=== PATIENT | female | born 1955 | race Caucasian/White ===

== ENCOUNTER 2019-05-04 20:25 | Emergency (ER) | payer OTHER ==
[~2019-05-04] VITALS: Ht 170.2 cm; Wt 49.9 kg
[~2019-05-04 20:25] MED LIST: AMLO5; ASPI81EC; HYDACE5 PO; IBUP200; INSULANPEN SC; LEVSOD50 PO; LISI20 PO; MAGNESIUM250 MG PO; METF500; OXYACE5T PO; VENL25 PO
[2019-05-04 20:47] LABS: Source, Urine Clean Catch
[2019-05-04 20:53] LABS: Bilirubin, Urine Neg (Neg); Blood, Urine 1+ (Neg); Glucose Qualitative, Urine 4+ (Neg); Ketones, Urine Neg (Neg); Leukocyte Esterase, Urine 1+ (Neg); Nitrite, Urine Neg (Neg); Protein, Urine 2+ (Neg); Urobilinogen, Urine NORM (Normal); pH, Urine 6.5 (5.0-8.0)
[2019-05-04 20:56] LABS: Appearance, Urine Clear (Clear); Color, Urine Yellow (P-Yellow)
[2019-05-04 20:57] LABS: Bacteria Mod /hpf; Red Blood Cells, Urine 0-2 /hpf (0-2); Squamous Epithelial Cells Rare /hpf (Few)
[2019-05-04 21:22] LABS: BASOPHILS ABSOLUTE AUTO 0.03 K/mm3 (0.00-0.23); BASOPHILS PERCENT AUTO 0 % (0-2); EOSINOPHILS ABSOLUTE AUTO 0.04 K/mm3 (0.00-0.68); EOSINOPHILS PERCENT AUTO 1 % (0-6); Hematocrit 38.4 % (33.0-51.0); Hemoglobin 12.5 g/dL (11.5-16.0); IMMATURE GRAN ABSOLUTE AUTO 0.03 K/mm3 (0.00-0.10); IMMATURE GRAN PERCENT AUTO 0 % (0-1); LYMPHOCYTES ABSOLUTE AUTO 2.09 K/mm3 (0.84-5.20); LYMPHOCYTES PERCENT AUTO 26 % (21-46); MONOCYTES ABSOLUTE AUTO 0.92 K/mm3 (0.16-1.47); MONOCYTES PERCENT AUTO 12 % (4-13); Mean Corpuscular HGB 29.5 pg (26.0-34.0); Mean Corpuscular HGB Conc 32.6 g/dL (31.5-36.5); Mean Corpuscular Volume 91 fL (80-100); Mean Platelet Volume 11.3 fL (9.1-12.4); NEUTROPHILS ABSOLUTE AUTO 4.89 K/mm3 (1.96-9.15); NEUTROPHILS PERCENT AUTO 61 % (41-73); Platelet Count 202 K/mm3 (150-400); RDW Coefficient Variation 15.3 % (11.7-14.2); RDW Standard Deviation 50.5 fL (35.1-46.3); Red Blood Cell Count 4.24 M/mm3 (3.80-5.20)
[2019-05-04 21:54] LABS: Alanine Aminotransfer (ALT/SGP 48 U/L (12-78); Albumin, Blood 2.2 g/dL (3.4-5.0); Albumin/Globulin Ratio 0.3 (0.8-1.8); Alk Phos 221 U/L (50-136); Anion Gap 8 mmol/L (6-16); Aspartate Aminotrans (AST/SGOT 88 U/L (12-37); Bilirubin, Total 0.3 mg/dL (0.1-1.0); Blood Urea Nitrogen 29 mg/dL (8-24); Bun/Creatinine Ratio 55.7 (12.0-20.0); CO2, Blood 22 mmol/L (21-32); Calcium, Blood 8.1 mg/dL (8.5-10.1); Chloride, Blood 97 mmol/L (98-108); Creatinine, Blood 0.52 mg/dL (0.40-1.00); Globulin, Blood 6.3 g/dL (2.2-4.0); Glomerular Filtration Rate >60 (60-); Glucose, Blood 636 mg/dL (70-99); Potassium, Blood 4.7 mmol/L (3.5-5.5); Sodium, Blood 127 mmol/L (136-145); Total Protein, Blood 8.5 g/dL (6.4-8.2)
[2019-05-04 22:13] LABS: Influenza A Negative (NEGATIVE); Influenza B Negative (NEGATIVE)
[2019-05-04] MEDS ORDERED: METF500 PO (23:59)
[2019-05-04] MEDS ORDERED: GLIP5 PO (23:59)
[2019-05-04] MEDS ORDERED: METO50ER PO (23:59)
[2019-05-05] MEDS ORDERED: CEPH500 PO (00:11)
[2019-05-05] MEDS ORDERED: Percocet 5-3251 EACH PO (09:28)
== END 2019-05-05 00:40 | disposition home or self-care (01) ==
LOC: ER 20:25
PROVIDERS: Emergency Medicine
DX: E11.65 Type 2 diabetes mellitus with hyperglycemia (principal); N39.0 Urinary tract infection, site not specified; I25.2 Old myocardial infarction; I10 Essential (primary) hypertension; Z86.19 Personal history of other infectious and parasitic diseases; F17.200 Nicotine dependence, unspecified, uncomplicated; Z79.899 Other long term (current) drug therapy
CPT/HCPCS: 36415; 71046; 80053; 81001; 82947; 85025; 87077; 87086; 87186; 87804; 93005; 93010; 96361; 96365; 99284-25; J0696; J1815; J7030

== ENCOUNTER 2019-05-05 07:20 | Emergency (ER) | payer OTHER ==
[~2019-05-05] VITALS: Ht 154.9 cm; Wt 45.4 kg
[~2019-05-05 07:20] MED LIST changes: +CEPH500 PO; +GLIP5 PO; +METF500 PO; +METO50ER PO
[2019-05-05] MEDS ORDERED: Percocet 5-3251 EACH PO (09:28)
== END 2019-05-05 09:45 | disposition home or self-care (01) ==
LOC: ER 07:20
DX: S42.251A Displaced fracture of greater tuberosity of right humerus, initial encounter for closed fracture (principal); S42.211A Unspecified displaced fracture of surgical neck of right humerus, initial encounter for closed fracture; I10 Essential (primary) hypertension; E11.9 Type 2 diabetes mellitus without complications; I25.2 Old myocardial infarction; F17.200 Nicotine dependence, unspecified, uncomplicated; Z79.899 Other long term (current) drug therapy; Z79.4 Long term (current) use of insulin; W01.0XXA Fall on same level from slipping, tripping and stumbling without subsequent striking against object, initial encounter
CPT/HCPCS: 29125; 73030; 99283-25

== ENCOUNTER 2019-05-09 19:24 | Emergency (ER) | payer OTHER ==
[~2019-05-09] VITALS: Ht 170.2 cm; Wt 49.9 kg
[~2019-05-09 19:24] MED LIST changes: +Percocet 5-3251 EACH PO
[2019-05-09] MEDS ORDERED: Voltaren100 GM TOP (21:37)
== END 2019-05-09 22:18 | disposition home or self-care (01) ==
LOC: ER 19:24
DX: S70.01XA Contusion of right hip, initial encounter (principal); S20.211A Contusion of right front wall of thorax, initial encounter; S42.201D Unspecified fracture of upper end of right humerus, subsequent encounter for fracture with routine healing; I10 Essential (primary) hypertension; E11.9 Type 2 diabetes mellitus without complications; I25.2 Old myocardial infarction; F17.200 Nicotine dependence, unspecified, uncomplicated; Z79.899 Other long term (current) drug therapy; Z79.4 Long term (current) use of insulin; W19.XXXA Unspecified fall, initial encounter
CPT/HCPCS: 73502; 99283-25

== ENCOUNTER 2019-05-13 23:19 | Inpatient (IN) | payer OTHER ==
[~2019-05-13] VITALS: Ht 170.2 cm; Wt 62.1 kg
[~2019-05-13 23:19] MED LIST changes: +Voltaren100 GM TOP
[2019-05-14 00:30] LABS: BASOPHILS ABSOLUTE AUTO 0.04 K/mm3 (0.00-0.23); BASOPHILS PERCENT AUTO 1 % (0-2); EOSINOPHILS ABSOLUTE AUTO 0.07 K/mm3 (0.00-0.68); EOSINOPHILS PERCENT AUTO 1 % (0-6); Hematocrit 34.7 % (33.0-51.0); Hemoglobin 11.2 g/dL (11.5-16.0); IMMATURE GRAN ABSOLUTE AUTO 0.09 K/mm3 (0.00-0.10); IMMATURE GRAN PERCENT AUTO 1 % (0-1); LYMPHOCYTES ABSOLUTE AUTO 2.24 K/mm3 (0.84-5.20); LYMPHOCYTES PERCENT AUTO 26 % (21-46); MONOCYTES ABSOLUTE AUTO 0.73 K/mm3 (0.16-1.47); MONOCYTES PERCENT AUTO 8 % (4-13); Mean Corpuscular HGB 28.6 pg (26.0-34.0); Mean Corpuscular HGB Conc 32.3 g/dL (31.5-36.5); Mean Corpuscular Volume 89 fL (80-100); NEUTROPHILS ABSOLUTE AUTO 5.53 K/mm3 (1.96-9.15); NEUTROPHILS PERCENT AUTO 64 % (41-73); Platelet Count 267 K/mm3 (150-400); RDW Coefficient Variation 15.3 % (11.7-14.2); RDW Standard Deviation 50.1 fL (35.1-46.3); Red Blood Cell Count 3.91 M/mm3 (3.80-5.20)
[2019-05-14 00:32] LABS: Source, Urine Clean Catch
[2019-05-14 00:41] LABS: Bilirubin, Urine Neg (Neg); Blood, Urine Neg (Neg); Glucose Qualitative, Urine 4+ (Neg); Ketones, Urine Neg (Neg); Leukocyte Esterase, Urine Neg (Neg); Nitrite, Urine Neg (Neg); Protein, Urine 3+ (Neg); Urobilinogen, Urine NORM (Normal)
[2019-05-14 00:44] LABS: Appearance, Urine Clear (Clear); Color, Urine Yellow (P-Yellow)
[2019-05-14 00:48] LABS: Bacteria Not Seen /hpf; Red Blood Cells, Urine Rare /hpf (0-2); Squamous Epithelial Cells Rare /hpf (Few); White Blood Cells, Urine Not Seen /hpf (0-5)
[2019-05-14 00:49] LABS: Alanine Aminotransfer (ALT/SGP 33 U/L (12-78); Albumin, Blood 1.9 g/dL (3.4-5.0); Albumin/Globulin Ratio 0.3 (0.8-1.8); Alk Phos 240 U/L (50-136); Anion Gap 9 mmol/L (6-16); Aspartate Aminotrans (AST/SGOT 74 U/L (12-37); Bilirubin, Total 0.4 mg/dL (0.1-1.0); Blood Urea Nitrogen 26 mg/dL (8-24); Bun/Creatinine Ratio 62.4 (12.0-20.0); CO2, Blood 22 mmol/L (21-32); CPK Creatine Kinase 52 U/L (26-193); Calcium, Blood 8.1 mg/dL (8.5-10.1); Chloride, Blood 104 mmol/L (98-108); Creatinine, Blood 0.42 mg/dL (0.40-1.00); Globulin, Blood 6.2 g/dL (2.2-4.0); Glomerular Filtration Rate >60 (60-); Glucose, Blood 510 mg/dL (70-99); Potassium, Blood 4.3 mmol/L (3.5-5.5); Sodium, Blood 135 mmol/L (136-145); Total Protein, Blood 8.1 g/dL (6.4-8.2)
[2019-05-14 03:04] LABS: BASOPHILS ABSOLUTE AUTO 0.04 K/mm3 (0.00-0.23); BASOPHILS PERCENT AUTO 1 % (0-2); EOSINOPHILS ABSOLUTE AUTO 0.14 K/mm3 (0.00-0.68); EOSINOPHILS PERCENT AUTO 2 % (0-6); Hematocrit 33.9 % (33.0-51.0); Hemoglobin 10.9 g/dL (11.5-16.0); IMMATURE GRAN ABSOLUTE AUTO 0.07 K/mm3 (0.00-0.10); IMMATURE GRAN PERCENT AUTO 1 % (0-1); LYMPHOCYTES ABSOLUTE AUTO 2.29 K/mm3 (0.84-5.20); LYMPHOCYTES PERCENT AUTO 26 % (21-46); MONOCYTES PERCENT AUTO 8 % (4-13); Mean Corpuscular HGB 29.1 pg (26.0-34.0); Mean Corpuscular HGB Conc 32.2 g/dL (31.5-36.5); Mean Corpuscular Volume 91 fL (80-100); Mean Platelet Volume 11.5 fL (9.1-12.4); NEUTROPHILS ABSOLUTE AUTO 5.45 K/mm3 (1.96-9.15); NEUTROPHILS PERCENT AUTO 63 % (41-73); Platelet Count 174 K/mm3 (150-400); RDW Coefficient Variation 15.4 % (11.7-14.2); RDW Standard Deviation 50.8 fL (35.1-46.3); Red Blood Cell Count 3.74 M/mm3 (3.80-5.20); White Blood Cell Count 8.69 K/mm3 (4.00-11.30)
[2019-05-14 03:28] LABS: Alanine Aminotransfer (ALT/SGP 35 U/L (12-78); Albumin, Blood 1.9 g/dL (3.4-5.0); Albumin/Globulin Ratio 0.3 (0.8-1.8); Alk Phos 250 U/L (50-136); Anion Gap 11 mmol/L (6-16); Aspartate Aminotrans (AST/SGOT 65 U/L (12-37); Bilirubin, Total 0.4 mg/dL (0.1-1.0); Blood Urea Nitrogen 25 mg/dL (8-24); Bun/Creatinine Ratio 70.2 (12.0-20.0); CO2, Blood 18 mmol/L (21-32); Calcium, Blood 7.7 mg/dL (8.5-10.1); Chloride, Blood 108 mmol/L (98-108); Creatinine, Blood 0.36 mg/dL (0.40-1.00); Globulin, Blood 5.7 g/dL (2.2-4.0); Glomerular Filtration Rate >60 (60-); Glucose, Blood 405 mg/dL (70-99); Sodium, Blood 137 mmol/L (136-145); Total Protein, Blood 7.6 g/dL (6.4-8.2)
--- NOTE | 2019-05-14 06:22 | NUR ---
SHIFT SUMMARY PT IS A 63 Y/O FEMALE, ADMITTED TO PCU 09 FOR HYPER AMMONEMIA DURING THE NIGHT AT APPROXIMATELY 0230. SHE IS A&O X 2-3, THOUGH FORGETFUL AND DISORIENTED AT TIMES. SHE IS A 1PA UP TO THE BATHROOM. RA IS CURRENTLY IN A SOFT CAST DUE TO A R HUMERUS FX FROM A FALL AT HOME A WEEK AGO. TELE SHOWED ST IN THE 100S THROUGH THE NIGHT. SHE REMAINED ON CONTINUOUS NS @ 100 ML/HR THROUGH THE NIGHT. PT'S BLOOD SUGAR WAS AT 510 AT ADMISSION, AND CAME DOWN TO 405 ON RECHECK. AFTER CONSULTING WITH DR ONTIVEROS, SHE WAS GIVEN HER 0600 DOSE EARLY. ON RECHECK, PT'S BLOOD SUGAR WAS AT 251. ALL OTHER VITALS STABLE. NO OTHER ACUTE CHANGES IN PT CONDITION NOTED DURING THE NIGHT. WILL CONTINUE TO MONITOR AND TREAT PER EMAR UNTIL HAND OFF TO DAY SHIFT RN.
--- NOTE | 2019-05-14 10:57 | NUR ---
Dr. Kolb here to see the pt in PCU 9
--- NOTE | 2019-05-14 18:43 | NUR ---
SHIFT SUMMARY THIS PT IS A&OX4. ORTHO MD SAW PT TODAY, REMOVED SPLINT TO RIGHT ARM AND ORDERED AN IMMOBILIZER TO BE PLACED ON PT. IMMOBILZER APPLIED AND PT STATED/APPROVED OF HER COMFORT LEVEL. PT HAS BEEN RECEIVING LACTULOSE AND THIS AFTERNOON, PT BEGAN HAVING LOOSE BM'S. PT HAD AT LEAST 3 BM'S. ON DAY SHIFT. EDUCATED PT ON PURPOSE OF MEDICATION AND EFFECTS. TELEMETRY HAS SHOWN PT TO BE IN SINUS RHYTHM RATE 90'S. THE REST OF PT'S VITALS HAVE REMAINED STABLE. PER MD, PT WAS ABLE TO CHANGE FROM Q1 HOUR CBG TO AC/HS AND ADVANCE IN HER DIET FROM NPO TO ADA. PT HAS TOLERATED HER DIET.
[2019-05-15 04:33] LABS: BASOPHILS ABSOLUTE AUTO 0.04 K/mm3 (0.00-0.23); BASOPHILS PERCENT AUTO 1 % (0-2); EOSINOPHILS ABSOLUTE AUTO 0.11 K/mm3 (0.00-0.68); EOSINOPHILS PERCENT AUTO 2 % (0-6); Hematocrit 35.9 % (33.0-51.0); Hemoglobin 11.5 g/dL (11.5-16.0); IMMATURE GRAN ABSOLUTE AUTO 0.04 K/mm3 (0.00-0.10); IMMATURE GRAN PERCENT AUTO 1 % (0-1); LYMPHOCYTES ABSOLUTE AUTO 1.52 K/mm3 (0.84-5.20); LYMPHOCYTES PERCENT AUTO 22 % (21-46); MONOCYTES ABSOLUTE AUTO 0.51 K/mm3 (0.16-1.47); MONOCYTES PERCENT AUTO 8 % (4-13); Mean Corpuscular HGB 29.2 pg (26.0-34.0); Mean Corpuscular Volume 91 fL (80-100); Mean Platelet Volume 10.9 fL (9.1-12.4); NEUTROPHILS ABSOLUTE AUTO 4.62 K/mm3 (1.96-9.15); NEUTROPHILS PERCENT AUTO 68 % (41-73); Platelet Count 219 K/mm3 (150-400); RDW Coefficient Variation 15.2 % (11.7-14.2); RDW Standard Deviation 50.2 fL (35.1-46.3); Red Blood Cell Count 3.94 M/mm3 (3.80-5.20); White Blood Cell Count 6.84 K/mm3 (4.00-11.30)
[2019-05-15 04:46] LABS: Alanine Aminotransfer (ALT/SGP 36 U/L (12-78); Albumin, Blood 1.8 g/dL (3.4-5.0); Albumin/Globulin Ratio 0.3 (0.8-1.8); Alk Phos 233 U/L (50-136); Anion Gap 9 mmol/L (6-16); Aspartate Aminotrans (AST/SGOT 90 U/L (12-37); Bilirubin, Total 0.6 mg/dL (0.1-1.0); Blood Urea Nitrogen 16 mg/dL (8-24); Bun/Creatinine Ratio 51.9 (12.0-20.0); CO2, Blood 15 mmol/L (21-32); Calcium, Blood 7.6 mg/dL (8.5-10.1); Chloride, Blood 117 mmol/L (98-108); Creatinine, Blood 0.31 mg/dL (0.40-1.00); Globulin, Blood 5.8 g/dL (2.2-4.0); Glomerular Filtration Rate >60 (60-); Glucose, Blood 106 mg/dL (70-99); Potassium, Blood 3.6 mmol/L (3.5-5.5); Sodium, Blood 141 mmol/L (136-145); Total Protein, Blood 7.6 g/dL (6.4-8.2)
--- NOTE | 2019-05-15 06:44 | NUR ---
SHIFT SUMMARY PATIENT PLEASENT AND COOPERATIVE THROUGHOUT THE NIGHT. PATIENT UP FREQUENTLY TO HAVE A BM'S. OTHERWISE PATIENT APPEARED TO SLEEP WELL LAST NIGHT. VITAL SIGNS CHARTED. IV FLUIDS RUNNING PER ORDERS. WILL CONTINUE TO MONITOR AND REPORT TO ONCOMING RN.
--- NOTE | 2019-05-15 13:10 | NUR ---
PT. ARRIVED TO FLOOR VIA WC FROM PCU. A&O PLEASANT AND COOPERATIVE. IMMOBILIZER ON RIGHT ARM. DENIES PAIN OR NAUSEA AT THIS TIME.
--- NOTE | 2019-05-15 13:58 | NUR ---
NURSING PCU TRANSFER SUMMARY: No significant changes noted t/o a.m. Pt changed to medical status w/o tele. Bed assignment received, telephone rpt provided to accepting RN by EM RN. Pt transferred via w/c to medical unit at approx 1305, belongings xferred w/pt, no s/s of acute distress at that time.
[2019-05-15 18:48] LABS: Source, Urine Clean Catch
--- NOTE | 2019-05-15 18:50 | NUR ---
IN/OUT CATH USED TO GET A CLEAN UA ON THE PT. ALSO 300ML OF URINE DRAINED WELL. 12 UNITS INSULIN GIVEN FOR BS OF 336. PT. HAS HAD NUMEROUS LOOSE STOOLS SINCE COMING TO FLOOR SO LACTULOSE HELD. PT. PLEASANT AND COOPERATIVE.
[2019-05-15 18:56] LABS: Bilirubin, Urine Neg (Neg); Blood, Urine 1+ (Neg); Glucose Qualitative, Urine 4+ (Neg); Ketones, Urine Neg (Neg); Leukocyte Esterase, Urine Neg (Neg); Nitrite, Urine Neg (Neg); Protein, Urine 3+ (Neg); Specific Gravity, Urine 1.015 (1.003-1.022); Urobilinogen, Urine NORM (Normal)
[2019-05-15 19:15] LABS: Appearance, Urine Clear (Clear); Color, Urine Pale Yellow (P-Yellow)
[2019-05-15 19:16] LABS: Bacteria Few /hpf; Squamous Epithelial Cells Rare /hpf (Few); White Blood Cells, Urine Not Seen /hpf (0-5)
--- NOTE | 2019-05-15 22:34 | NUR ---
1930 PT C/O RFA DISCOMFORT RATED 7/10 WITH NO PAIN MEDS NOTED; ALSO C/O URGE TO SMOKE AND GO OUTSIDE WITH THIS NURSE ADVISING PATIENT THAT SHE COULD NOT LEAVE THIS UNIT DUE SAFETY CONCERNS, HOWEVER; PATIENT MIGHT CONSIDER A NICOTINE SMOKING PATCH WITH PATIENT IN AGREEMENT. 2029 THIS NURSE CALLED José Miguel MUÑOZ DISEASE MANAGEMENT NURSE WITH ORDERS RECEIVED FOR NICOTINE PATCH AND PAIN MEDS (DISEASE MANAGEMENT NURSE WITH INPUT ORDERS TO COMPUTER SYSTEM). 2199 PATIENT RESTING COMFORTABLY IN BED WHILE RIGHT ARM IMMOBILIZER.
--- NOTE | 2019-05-16 04:30 | NUR ---
SHIFT SUMMARY: 63 Y/O FEMALE RESTED COMFORTABLY ALL SHIFT; OCCASIONAL C/O RIGHT FOREARM PAIN RATED 6/10 WITH NORCO 5/325 PO X 1 GIVEN TWICE WITH RELIEF FELT; WEARING RIGHT ARM IMMOBILIZER AT 45 DEGREE ANGLE; K-PAD IN USE AT SIDE FOR DISCOMFORT; ALERT AND ORIENTED X 3, ABLE TO FOLLOW ALL SIMPLE VERBAL COMMANDS; DENIES URGE TO SMOKE AT THIS TIME WHILE WEARING NICOTINE PATCH 14MG LEFT SHOULDER; DENIES ANY ANXIETY FEELINGS THIS SHIFT; BED ALARM APPLIED, BED LOW POSITION WITH CALL LIGHT AT SIDE.
[2019-05-16 05:19] LABS: BASOPHILS ABSOLUTE AUTO 0.02 K/mm3 (0.00-0.23); BASOPHILS PERCENT AUTO 0 % (0-2); EOSINOPHILS PERCENT AUTO 2 % (0-6); Hemoglobin 10.7 g/dL (11.5-16.0); IMMATURE GRAN ABSOLUTE AUTO 0.05 K/mm3 (0.00-0.10); IMMATURE GRAN PERCENT AUTO 1 % (0-1); LYMPHOCYTES ABSOLUTE AUTO 1.73 K/mm3 (0.84-5.20); LYMPHOCYTES PERCENT AUTO 25 % (21-46); MONOCYTES ABSOLUTE AUTO 0.53 K/mm3 (0.16-1.47); MONOCYTES PERCENT AUTO 8 % (4-13); Mean Corpuscular HGB 28.8 pg (26.0-34.0); Mean Corpuscular HGB Conc 31.5 g/dL (31.5-36.5); Mean Corpuscular Volume 92 fL (80-100); Mean Platelet Volume 10.7 fL (9.1-12.4); NEUTROPHILS ABSOLUTE AUTO 4.42 K/mm3 (1.96-9.15); NEUTROPHILS PERCENT AUTO 65 % (41-73); Platelet Count 248 K/mm3 (150-400); RDW Coefficient Variation 15.1 % (11.7-14.2); RDW Standard Deviation 50.4 fL (35.1-46.3); Red Blood Cell Count 3.71 M/mm3 (3.80-5.20); White Blood Cell Count 6.85 K/mm3 (4.00-11.30)
[2019-05-16 05:38] LABS: Alanine Aminotransfer (ALT/SGP 39 U/L (12-78); Albumin, Blood 1.8 g/dL (3.4-5.0); Albumin/Globulin Ratio 0.3 (0.8-1.8); Alk Phos 237 U/L (50-136); Anion Gap 6 mmol/L (6-16); Aspartate Aminotrans (AST/SGOT 74 U/L (12-37); Bilirubin, Total 0.5 mg/dL (0.1-1.0); Blood Urea Nitrogen 22 mg/dL (8-24); Bun/Creatinine Ratio 51.6 (12.0-20.0); CO2, Blood 19 mmol/L (21-32); Calcium, Blood 7.8 mg/dL (8.5-10.1); Chloride, Blood 113 mmol/L (98-108); Creatinine, Blood 0.43 mg/dL (0.40-1.00); Globulin, Blood 5.5 g/dL (2.2-4.0); Glomerular Filtration Rate >60 (60-); Glucose, Blood 281 mg/dL (70-99); Potassium, Blood 4.3 mmol/L (3.5-5.5); Sodium, Blood 138 mmol/L (136-145); Total Protein, Blood 7.3 g/dL (6.4-8.2)
[2019-05-16 14:29] LABS: Campylobacter Sp Not Detected (NOT DETECT); Plesiomonas Shigelloides Not Detected (NOT DETECT); Salmonella Sp Not Detected (NOT DETECT); Vibrio Sp Not Detected (NOT DETECT); Yersinia Enterocolitica Not Detected (NOT DETECT)
[2019-05-16 14:30] LABS: Adenovirus F 40/41 Not Detected (NOT DETECT); Astrovirus Not Detected (NOT DETECT); Cryptosporidium Not Detected (NOT DETECT); Cyclospora Cayetanensis Not Detected (NOT DETECT); E. Coli O157 Not Detected (NOT DETECT); Entamoeba Histolytica Not Detected (NOT DETECT); Enteroaggregative E. coli-EAEC Not Detected (NOT DETECT); Enteropathogenic E. coli-EPEC Not Detected (NOT DETECT); Enterotoxigenic E. coli-ETEC Not Detected (NOT DETECT); Giardia Lamblia Not Detected (NOT DETECT); Norovirus GI/GII Not Detected (NOT DETECT); Rotavirus A Not Detected (NOT DETECT); Sapovirus Not Detected (NOT DETECT); Shiga Toxin-prod E. coli-STEC Not Detected (NOT DETECT); Shigella/Enteroin E. coli-EIEC Not Detected (NOT DETECT); Vibrio Cholerae Not Detected (NOT DETECT)
--- NOTE | 2019-05-16 17:07 | NUR ---
PT HAS HAD 4-6 BOWEL MOVEMENTS THIS P.M. TEARFUL WHILE ON THE COMMODE DUE TO AMARILIS PAIN AND REDDNESS LOTION APPLIED. PT REFUSED 1700 DOSING OF LACTULOSE.
--- NOTE | 2019-05-16 18:08 | NUR ---
SHIFT SUMMARY OX3. PLEASANT. SBA TO BATHROOM. RIGHT HUMERUS FX IN SLING. MEDICATED FOR PAIN TO RIGHT HIP. ELEVATED AMMONIA GIVEN LACTULOSE. 4-6 BOWEL MOVMENTS THIS AFTERNOON. PT TEARFUL DUE TO RECTAL PAIN. REFUSED 1700 LACTULOSE. EATING AND DRINKING WELL. LIVES AT HOME WITH FAMILY.
--- NOTE | 2019-05-17 04:52 | NUR ---
SHIFT SUMMARY PT IS A 63 Y/O FEMALE, ADMITTED FOR HYPERAMMONEMIA. SHE IS A&O X 3, AND A SBA UP TO THE BATHROOM. PT WAS MEDICATED ONCE DURING THE NIGHT FOR PAIN IN HER R SHOULDER, WHERE SHE HAS A HUMERUS FX. PT ALSO USED HEAT TO THE SITE FOR PAIN RELIEF. NO COMPLAINTS OF NAUSEA OR SOB. VITAL SIGNS STABLE. PT DID TAKE HER EVENING LACTULOSE. NO ACUTE CHANGES IN PT CONDITION NOTED. WILL CONTINUE TO MONITOR AND TREAT PER EMAR UNTIL HAND OFF TO DAY SHIFT RN.
[2019-05-17 06:11] LABS: Albumin, Blood 1.9 g/dL (3.4-5.0); Anion Gap 7 mmol/L (6-16); Blood Urea Nitrogen 19 mg/dL (8-24); Bun/Creatinine Ratio 49.4 (12.0-20.0); CO2, Blood 18 mmol/L (21-32); Calcium, Blood 7.6 mg/dL (8.5-10.1); Chloride, Blood 109 mmol/L (98-108); Creatinine, Blood 0.39 mg/dL (0.40-1.00); Glomerular Filtration Rate >60 (60-); Glucose, Blood 243 mg/dL (70-99); Phosphorus, Blood 2.3 mg/dL (2.5-4.9); Sodium, Blood 134 mmol/L (136-145)
[2019-05-17] MEDS ORDERED: LACT10SY PO (11:22)
[2019-05-17] MEDS ORDERED: Humulin R500 UNIT/1 SC (11:22)
[2019-05-17] MEDS ORDERED: Nicoderm Cq1 EAC1 TOP (11:23)
[2019-05-17] MEDS ORDERED: BACTRIM DS TAB1 EACH PO (11:23)
--- NOTE | 2019-05-17 12:43 | NUR ---
DISCHARGE: PATIENT DENIED PAIN OR DISCOMFORT THIS MORNING. PATIENT VERBALIZED UNDERSTANDING OF THE REASON FOR THE LACTULOSE AND IMPORTANCE OF TAKING THIS MEDICATION. PATIENT ALERT AND ORIENTED X3. PATIENT STEADY ON HER FEET WITH CANE. PATIENT CALLED APPROPRIATELY. PATIENT DENIES NAUSEA OR ABDOMINAL DISCOMFORT. PATIENT HAS AN EXCELLENT APPETITE (100% OF MEALS). PATIENT MEDICATIONS FAXED TO [facility] PER PATIENT REQUEST. DISCHARGE EDUCATION AND INFORMATION PROVIDED TO THE PATIENT AND HER BROTHER. ALL QUESTIONS AND CONCERNS ADDRESSED. PATIENT DISCHARGED IN WHEELCHAIR WITH BINDING STITCHER AND BROTHER. PATIENT STABLE AT TIME OF DISCHARGE.
== END 2019-05-17 12:29 | disposition home or self-care (01) | DRG 642 ==
LOC: ER 23:19 → PCU 05-14 02:13 → MEDS 05-15 13:08
PROVIDERS: Emergency Medicine; Internal Medicine; ADMIT Family Medicine
DX: E72.20 Disorder of urea cycle metabolism, unspecified (principal); S42.211A Unspecified displaced fracture of surgical neck of right humerus, initial encounter for closed fracture; E87.2 Acidosis; E87.1 Hypo-osmolality and hyponatremia; N39.0 Urinary tract infection, site not specified; L03.116 Cellulitis of left lower limb; L03.115 Cellulitis of right lower limb; R18.8 Other ascites; A02.8 Other specified salmonella infections; E11.65 Type 2 diabetes mellitus with hyperglycemia; B18.2 Chronic viral hepatitis C; E03.9 Hypothyroidism, unspecified; D64.9 Anemia, unspecified; I10 Essential (primary) hypertension; I25.2 Old myocardial infarction; W19.XXXA Unspecified fall, initial encounter; Z79.4 Long term (current) use of insulin; F17.210 Nicotine dependence, cigarettes, uncomplicated; K70.11 Alcoholic hepatitis with ascites; K52.9 Noninfective gastroenteritis and colitis, unspecified
CPT/HCPCS: 0097U; 36415; 74176; 80053; 80069; 81001; 82140; 82550; 82947; 83036; 83605; 83690; 85025; 87040; 93970; 96360; 96361; 99285; A9270-GY; J0690; J1650; J7030

== ENCOUNTER 2019-06-07 05:48 | Inpatient (IN) | payer OTHER ==
[~2019-06-07] VITALS: Ht 170.2 cm; Wt 56.9 kg
[~2019-06-07 05:48] MED LIST changes: +BACTRIM DS TAB1 EACH PO; +Humulin R500 UNIT/1 SC; +LACT10SY PO; +Nicoderm Cq1 EAC1 TOP
[2019-06-07 08:34] LABS: BASOPHILS ABSOLUTE AUTO 0.02 K/mm3 (0.00-0.23); BASOPHILS PERCENT AUTO 0 % (0-2); EOSINOPHILS ABSOLUTE AUTO 0.03 K/mm3 (0.00-0.68); EOSINOPHILS PERCENT AUTO 0 % (0-6); Hematocrit 32.6 % (33.0-51.0); Hemoglobin 10.3 g/dL (11.5-16.0); IMMATURE GRAN ABSOLUTE AUTO 0.06 K/mm3 (0.00-0.10); IMMATURE GRAN PERCENT AUTO 1 % (0-1); LYMPHOCYTES ABSOLUTE AUTO 1.36 K/mm3 (0.84-5.20); LYMPHOCYTES PERCENT AUTO 15 % (21-46); MONOCYTES ABSOLUTE AUTO 0.81 K/mm3 (0.16-1.47); MONOCYTES PERCENT AUTO 9 % (4-13); Mean Corpuscular HGB 28.1 pg (26.0-34.0); Mean Corpuscular HGB Conc 31.6 g/dL (31.5-36.5); Mean Corpuscular Volume 89 fL (80-100); Mean Platelet Volume 10.6 fL (9.1-12.4); NEUTROPHILS PERCENT AUTO 76 % (41-73); Platelet Count 280 K/mm3 (150-400); RDW Coefficient Variation 14.9 % (11.7-14.2); RDW Standard Deviation 48.5 fL (35.1-46.3); Red Blood Cell Count 3.67 M/mm3 (3.80-5.20); White Blood Cell Count 9.28 K/mm3 (4.00-11.30)
[2019-06-07 08:56] LABS: Alanine Aminotransfer (ALT/SGP 27 U/L (12-78); Albumin, Blood 1.8 g/dL (3.4-5.0); Albumin/Globulin Ratio 0.3 (0.8-1.8); Alk Phos 335 U/L (50-136); Anion Gap 2 mmol/L (6-16); Aspartate Aminotrans (AST/SGOT 61 U/L (12-37); Bilirubin, Total 0.6 mg/dL (0.1-1.0); Blood Urea Nitrogen 20 mg/dL (8-24); Bun/Creatinine Ratio 58.1 (12.0-20.0); CO2, Blood 27 mmol/L (21-32); Calcium, Blood 7.7 mg/dL (8.5-10.1); Chloride, Blood 105 mmol/L (98-108); Creatinine, Blood 0.34 mg/dL (0.40-1.00); Globulin, Blood 6.1 g/dL (2.2-4.0); Glomerular Filtration Rate >60 (60-); Glucose, Blood 283 mg/dL (70-99); Potassium, Blood 4.2 mmol/L (3.5-5.5); Sodium, Blood 134 mmol/L (136-145); Total Protein, Blood 7.9 g/dL (6.4-8.2)
[2019-06-07 13:52] LABS: International Normalized Ratio 1.13
--- NOTE | 2019-06-07 16:32 | NUR ---
Echocardiogram completed.
[2019-06-07 20:19] LABS: Body Fluid Crystals NEG (NEGATIVE)
[2019-06-07 20:46] LABS: Lymphs, Synovial Fluid 4 % (0-15); Monocytes/Macrophages, Synovia 6 % (0-65); Neutrophils, Synovial Fluid 90 % (0-24)
[2019-06-07 21:06] LABS: WBC Count, Synovial Fluid 35530 /mm3 (0-180)
[2019-06-07 21:07] LABS: BODY FLUID RBC 0.013 M/mm3 (0-0); RBC Count, Synovial Fluid 13000 /mm3 (0-0)
[2019-06-07 21:18] LABS: Appearance, Synovial Fluid Cloudy (Clear); Color, Synovial Fluid Yellow (None-P Yel)
[2019-06-08 01:48] LABS: Source, Urine Clean Catch
[2019-06-08 01:53] LABS: Appearance, Urine Clear (Clear); Bilirubin, Urine Neg (Neg); Blood, Urine 2+ (Neg); Color, Urine Yellow (P-Yellow); Glucose Qualitative, Urine 3+ (Neg); Ketones, Urine Neg (Neg); Leukocyte Esterase, Urine Neg (Neg); Nitrite, Urine Neg (Neg); Protein, Urine 3+ (Neg); Specific Gravity, Urine 1.015 (1.003-1.022); Urobilinogen, Urine 1+ (Normal); pH, Urine 6.5 (5.0-8.0)
[2019-06-08 01:59] LABS: Bacteria Few /hpf; Squamous Epithelial Cells Few /hpf (Few); White Blood Cells, Urine 0-2 /hpf (0-5)
[2019-06-08 04:13] LABS: BASOPHILS ABSOLUTE AUTO 0.02 K/mm3 (0.00-0.23); BASOPHILS PERCENT AUTO 0 % (0-2); EOSINOPHILS ABSOLUTE AUTO 0.08 K/mm3 (0.00-0.68); EOSINOPHILS PERCENT AUTO 1 % (0-6); Hematocrit 33.5 % (33.0-51.0); Hemoglobin 10.6 g/dL (11.5-16.0); IMMATURE GRAN ABSOLUTE AUTO 0.04 K/mm3 (0.00-0.10); IMMATURE GRAN PERCENT AUTO 1 % (0-1); LYMPHOCYTES ABSOLUTE AUTO 1.92 K/mm3 (0.84-5.20); LYMPHOCYTES PERCENT AUTO 24 % (21-46); MONOCYTES ABSOLUTE AUTO 0.94 K/mm3 (0.16-1.47); MONOCYTES PERCENT AUTO 12 % (4-13); Mean Corpuscular HGB 27.8 pg (26.0-34.0); Mean Corpuscular HGB Conc 31.6 g/dL (31.5-36.5); Mean Corpuscular Volume 88 fL (80-100); Mean Platelet Volume 10.7 fL (9.1-12.4); NEUTROPHILS ABSOLUTE AUTO 5.02 K/mm3 (1.96-9.15); NEUTROPHILS PERCENT AUTO 63 % (41-73); Platelet Count 282 K/mm3 (150-400); RDW Coefficient Variation 14.9 % (11.7-14.2); RDW Standard Deviation 47.9 fL (35.1-46.3); Red Blood Cell Count 3.81 M/mm3 (3.80-5.20); White Blood Cell Count 8.02 K/mm3 (4.00-11.30)
[2019-06-08 04:39] LABS: Alanine Aminotransfer (ALT/SGP 30 U/L (12-78); Albumin, Blood 1.6 g/dL (3.4-5.0); Albumin/Globulin Ratio 0.3 (0.8-1.8); Alk Phos 356 U/L (50-136); Anion Gap 5 mmol/L (6-16); Aspartate Aminotrans (AST/SGOT 80 U/L (12-37); Bilirubin, Total 0.4 mg/dL (0.1-1.0); Blood Urea Nitrogen 21 mg/dL (8-24); Bun/Creatinine Ratio 54.3 (12.0-20.0); CO2, Blood 25 mmol/L (21-32); Calcium, Blood 7.8 mg/dL (8.5-10.1); Chloride, Blood 104 mmol/L (98-108); Creatinine, Blood 0.39 mg/dL (0.40-1.00); Globulin, Blood 6.2 g/dL (2.2-4.0); Glomerular Filtration Rate >60 (60-); Glucose, Blood 249 mg/dL (70-99); Potassium, Blood 4.4 mmol/L (3.5-5.5); Sodium, Blood 134 mmol/L (136-145); Total Protein, Blood 7.8 g/dL (6.4-8.2)
--- NOTE | 2019-06-08 05:57 | NUR ---
shift summary: vss, no acute changes. pt remained a/0 x 4, pleasant/cooperative. pt voided on bedpan, rolls well. pt tolerated PO with no n/v start of shift, npo after 0000. CBG requiring insuline administration x 2. SPO2 on RA >90%. pt reports pain at 8-9/10, administered analgesia per mar, reports 6/10 on reassessment.
--- NOTE | 2019-06-08 08:36 | NUR ---
CLARIFIED WITH DR. SUTTON THAT PT DOES NOT CURRENTLY TAKE METOPROLOL. WILL CONTINUE TO MONITOR.
--- NOTE | 2019-06-08 12:44 | NUR ---
PT TAKEN TO DAY SURGERY AT THIS TIME.
--- NOTE | 2019-06-08 12:59 | NUR ---
"DAY SURGERY RN | CEASAR TAY LEFT IN SPECIMEN CUP IN ROOM WITH PATIENT LABEL. REPORTED TO THIS TO DOMENICA ORTA."
--- NOTE | 2019-06-08 13:04 | NUR ---
"DAY SURGERY RN | TO OR BOTH DOCTORS AND CONTENT DESIGNER RN HAVE SEEN. TO OR. REPORT TO JALIL ORTA."
--- NOTE | 2019-06-08 16:45 | NUR ---
PT ARRIVED BACK FROM PACU AT APPROXIMATELY 1600. SHE IS ALERT AND ORIENTED. PAIN MANAGED. PT HAS AN AQUACEL TO THE L HIP, DRAINAGE. SHE HAS A HEMOVAC TO HER R KNEE AND TONG TO HER R CALF. PT TOLERATING PO, SHE DENIES NAUSEA. WILL CONTINUE TO MONITOR.
--- NOTE | 2019-06-08 18:36 | NUR ---
SHIFT SUMMARY PT HAD SURGERY TODAY. PAIN MANAGED WITH PO PAIN MEDICATION AND REPOSITIONING. FAMILY HAS BEEN PRESENT FOR SUPPORT. WILL CONTINUE TO MONITOR.
--- NOTE | 2019-06-09 05:04 | NUR ---
shift summary: vss, no acute changes, pt remained a/0 x 4, pleasant/cooperative, repors no n/v. CBG at 2100 468, reported to MD with change in sliding scale, medicated per jul. pt requesting snacks often, has been educated per diabetic diet and provided with high protein snacks. operative site L hip aquacel c/d/i, good capillar refill and pulses. operative sites R leg c/d/i, with R posterio knee hemovac draining serous liquid, R posterior calf draining serosanguinous liquid. upon assessment, pt reports pain at 8/10, falls asleep immediately after medicating, no grimace.
--- NOTE | 2019-06-09 07:40 | NUR ---
PT DRESSING RECENTLY CHANGED TO RIGHT CALF IT WAS SATURATED BUT ALSO HAD LARGE CLOT ON DRESSING. CLEANED AND NEW DRESSING PLACED, ASSISTED WITH OTHER RN'S.
--- NOTE | 2019-06-09 08:03 | NUR ---
MADAN HERE TO SEE PT.
--- NOTE | 2019-06-09 09:06 | NUR ---
PT RECENTLY MOVED TO ROOM 211 IN BED.
--- NOTE | 2019-06-09 09:31 | NUR ---
BEDSIDE REPORT GIVEN TO OTHER RN S.W. WHO IS TAKING OVER CARE AT THIS TIME. PT REPORTS NOT WEARING SLING TO R ARM WHILE IN BED, SHOWN DRESSINGS AND DRAINS.
[2019-06-09 10:24] LABS: BASOPHILS ABSOLUTE AUTO 0.01 K/mm3 (0.00-0.23); BASOPHILS PERCENT AUTO 0 % (0-2); EOSINOPHILS ABSOLUTE AUTO 0.06 K/mm3 (0.00-0.68); EOSINOPHILS PERCENT AUTO 1 % (0-6); Hematocrit 32.1 % (33.0-51.0); Hemoglobin 10.2 g/dL (11.5-16.0); IMMATURE GRAN ABSOLUTE AUTO 0.04 K/mm3 (0.00-0.10); IMMATURE GRAN PERCENT AUTO 1 % (0-1); LYMPHOCYTES ABSOLUTE AUTO 1.99 K/mm3 (0.84-5.20); LYMPHOCYTES PERCENT AUTO 24 % (21-46); MONOCYTES ABSOLUTE AUTO 0.77 K/mm3 (0.16-1.47); MONOCYTES PERCENT AUTO 9 % (4-13); Mean Corpuscular HGB 28.3 pg (26.0-34.0); Mean Corpuscular HGB Conc 31.8 g/dL (31.5-36.5); Mean Corpuscular Volume 89 fL (80-100); Mean Platelet Volume 10.9 fL (9.1-12.4); NEUTROPHILS PERCENT AUTO 66 % (41-73); Platelet Count 275 K/mm3 (150-400); RDW Coefficient Variation 14.9 % (11.7-14.2); RDW Standard Deviation 47.6 fL (35.1-46.3); White Blood Cell Count 8.47 K/mm3 (4.00-11.30)
[2019-06-09 11:29] LABS: Anion Gap 6 mmol/L (6-16); Blood Urea Nitrogen 26 mg/dL (8-24); Bun/Creatinine Ratio 56.9 (12.0-20.0); CO2, Blood 22 mmol/L (21-32); Calcium, Blood 7.7 mg/dL (8.5-10.1); Chloride, Blood 103 mmol/L (98-108); Creatinine, Blood 0.46 mg/dL (0.40-1.00); Glomerular Filtration Rate >60 (60-); Glucose, Blood 359 mg/dL (70-99); Potassium, Blood 4.2 mmol/L (3.5-5.5); Sodium, Blood 131 mmol/L (136-145)
--- NOTE | 2019-06-09 15:47 | NUR ---
Pt resting in bed and reports 9/10 pain. She reports current regimen has little benefit. Pt is A&OX4. Engaged in discussion regarding advanced directives. Pt expresses interest and states "I don't want to live if I'm going to be a vegetable". Educated Pt on life sustaining measures for AD including risk factors. Educated on each section to complete including the importance of having a healthcare desk representative with V/U made by Pt. Pt reports she will complete AD after discussing with family. No other concerns reported at this time. Spoke with bedside RN Krysitn discussed case and reported Pt's pain. Discussed possible medications for MD to consider. Palliative Care will remain available.
[2019-06-10 06:05] LABS: BASOPHILS ABSOLUTE AUTO 0.04 K/mm3 (0.00-0.23); BASOPHILS PERCENT AUTO 1 % (0-2); EOSINOPHILS PERCENT AUTO 1 % (0-6); Hematocrit 31.7 % (33.0-51.0); IMMATURE GRAN ABSOLUTE AUTO 0.02 K/mm3 (0.00-0.10); IMMATURE GRAN PERCENT AUTO 0 % (0-1); LYMPHOCYTES ABSOLUTE AUTO 1.99 K/mm3 (0.84-5.20); LYMPHOCYTES PERCENT AUTO 25 % (21-46); MONOCYTES ABSOLUTE AUTO 0.79 K/mm3 (0.16-1.47); MONOCYTES PERCENT AUTO 10 % (4-13); Mean Corpuscular HGB 28.2 pg (26.0-34.0); Mean Corpuscular HGB Conc 31.5 g/dL (31.5-36.5); Mean Corpuscular Volume 90 fL (80-100); Mean Platelet Volume 10.8 fL (9.1-12.4); NEUTROPHILS ABSOLUTE AUTO 4.98 K/mm3 (1.96-9.15); NEUTROPHILS PERCENT AUTO 63 % (41-73); Platelet Count 285 K/mm3 (150-400); RDW Coefficient Variation 14.6 % (11.7-14.2); RDW Standard Deviation 48.3 fL (35.1-46.3); Red Blood Cell Count 3.54 M/mm3 (3.80-5.20); White Blood Cell Count 7.92 K/mm3 (4.00-11.30)
[2019-06-10 06:14] LABS: Anion Gap 5 mmol/L (6-16); Blood Urea Nitrogen 23 mg/dL (8-24); Bun/Creatinine Ratio 45.1 (12.0-20.0); CO2, Blood 25 mmol/L (21-32); Calcium, Blood 7.9 mg/dL (8.5-10.1); Chloride, Blood 105 mmol/L (98-108); Creatinine, Blood 0.51 mg/dL (0.40-1.00); Glomerular Filtration Rate >60 (60-); Glucose, Blood 216 mg/dL (70-99); Potassium, Blood 4.3 mmol/L (3.5-5.5); Sodium, Blood 135 mmol/L (136-145)
--- NOTE | 2019-06-10 06:15 | NUR ---
SHIFT SUMMARY NO ACUTE CHANGES, A/OX4, VSS, TOLERATING REGULAR DIABETIC DIET- DENIES N/V, PAIN MANAGED PER EMAR AND REPOSITIONING. PT APPEARED TO HAVE SLEPT WELL T/O THE NIGHT. AQUACEL TO LEFT HIP C/D/I, NO DRAINAGE NOTED. AQUACEL/DRESSINGS TO RIGHT KNEE AREA C/D/I WITH NO NEW DRAINAGE DURING SHIFT. HEMOVAC AND TONG DRAIN TO RLE IN PLACE AND DRAINING SS, DRESSINGS C/D/I. PT VOIDING, UP TO BSC WITH 1 ASSIST. ABX ADMINISTERED PER ORDERS. PT CURRENTLY RESTING IN BED WITH CALL LIGHTING REACH. WILL CONT TO [id number] AND GIVE BEDSIDE REPORT TO ONCOMING RN.
--- NOTE | 2019-06-10 16:05 | NUR ---
SHIFT SUMMARY PT A&OX4, VSS, CBGS REQ COVERAGE. POD2 L HIP PINNING AND R KNEE I&D, HEMOVAC AND TONG DRAINING SS, WBAT. RUE IN SLING. PARTICIPATED WITH PT/OT. PAIN MANAGED WITH ULTRAM & TORADOL. MOLLY PO, DENIES N&V. VOIDING WELL. AMB W/SBA/FWW/GB TO BRP; UP TO CHAIR T/O SHIFT. WILL GIVE REPORT TO ONCDAVE MEDRANO RN.
--- NOTE | 2019-06-11 05:52 | NUR ---
SHIFT SUMMARY: PATIENT IS A&OX4, VS ARE STABLE, ABLE TO TRANSFER TO BSC OR CHAIR WITH WALKER, GAIT BELT AND ASSIST OF 1. PATIENT CONTINUES TO REPORT PAIN IN R KNEE AND LEFT GROIN 8/ WITH FAIR EFFECT. PATIENT ALSO HAS NAUSEA, ZOFRAN WAS GIVEN WITH GOOD EFFECT. PATIENT IS EMOTIONALY LIABLE THIS AM, EMOTIONAL SUPPORT IS GIVEN. HEMOVAC DOES NOT STAY CONPRESSED, METAL SPRAYER ASSISTS. TONG DRAIN CONTINUES TO PUT OUT MONDERATE AMOUNT OF SEROSANQUINES FLUID.
--- NOTE | 2019-06-11 13:14 | NUR ---
DR. COOLEY IN ROOM AT ABOUT 0830. TONG AND HEMOVAC REMOVED, TONG SITE DRESSED WITH MEDIPORE DRESSING AND HEMOVAC SITE WITH ABD/GAUZE AND KATHY WRAP. PLAN IS I&D TODAY OF R KNEE AND CALF PER DR. COOLEY. PT CHANGED TO NPO AT THIS TIME, BREAKFAST TRAY REMOVED FROM ROOM.
--- NOTE | 2019-06-11 17:45 | NUR ---
SURGERY CANCELATION AFTER DISCOVERING PT HAD CHEWED NUTS AND SPIT THEM OUT, CALL & DISCUSSED THIS W/ DR GRANT. DUE TO PT SAFETY OF RISK FOR ASPIRATION DURING SURGERY AND THE SURGERY NOT BEING AN EMERGENT CASE, SUGERY IS CANCELLED. DISCUSSED THIS W/ PT, SHE WAS EMOTIONAL BUT UNDERSTANDS.
--- NOTE | 2019-06-11 18:33 | NUR ---
AT ABOUT 1700, THIS RN HAPPENED TO WALK BY ROOM AND SEE PT CHEWING ON SOMETHING. UPON ENTERING ROOM, PT HAD A BAG OF ALMONDS ON THE BED NEXT TO HER. THIS RN ASKED WHERE SHE GOT THESE, PT HAD THEM STORED IN HER DRAWER, THIS RN WAS NOT AWARE. ALMONDS TAKEN FROM PT SHE IS NPO TO PREP FOR SURGERY. PT TOLD THAT SHE MAY NOT BE ABLE TO GO TO SURGERY NOW, PT WAS AWARE THAT SHE WAS NPO BUT ATE ANYWAY. DR. GRANT MADE AWARE.
--- NOTE | 2019-06-11 19:40 | NUR ---
SUMMARY: NO ACUTE CHANGE TODAY, SEE PREVIOUS NOTES. PT IS A/O, VSS. SURGICAL SITES WNL. PLAN IS NPO AT 0000 AND I&D TOMORROW. PT IS AWARE. REPORT PASSED TO MITCHELL YANEZ RN
--- NOTE | 2019-06-12 04:40 | NUR ---
SHIFT SUMMARY AA0X4, VSS. POD 4 L HIP REPAIR. DRESSING CDI, PATIENT FOLLOWING PRECAUTIONS WITH TRANSFERS. R CALF RED AND SWOLLEN. PT REPORTS SOME PAIN IN LEG. NPO SINCE MIDNIGHT TO PREPARE FOR I&D TODAY. DENIES NAUSEA. UP TO BSC IND, EDUCATED PT ON IMPORTANCE OF CALLING FOR ASSISTANCE AND CAUGHT HER TRANSFERING SELF.
[2019-06-12 05:11] LABS: Hematocrit 30.3 % (33.0-51.0); Hemoglobin 9.5 g/dL (11.5-16.0); Mean Corpuscular HGB 28.1 pg (26.0-34.0); Mean Corpuscular HGB Conc 31.4 g/dL (31.5-36.5); Mean Corpuscular Volume 90 fL (80-100); Mean Platelet Volume 10.4 fL (9.1-12.4); Platelet Count 273 K/mm3 (150-400); RDW Coefficient Variation 14.7 % (11.7-14.2); RDW Standard Deviation 47.8 fL (35.1-46.3); Red Blood Cell Count 3.38 M/mm3 (3.80-5.20)
[2019-06-12 05:31] LABS: Alanine Aminotransfer (ALT/SGP 23 U/L (12-78); Albumin, Blood 1.7 g/dL (3.4-5.0); Albumin/Globulin Ratio 0.3 (0.8-1.8); Alk Phos 338 U/L (50-136); Anion Gap 4 mmol/L (6-16); Aspartate Aminotrans (AST/SGOT 67 U/L (12-37); Bilirubin, Total 0.3 mg/dL (0.1-1.0); Blood Urea Nitrogen 24 mg/dL (8-24); Bun/Creatinine Ratio 49.7 (12.0-20.0); CO2, Blood 27 mmol/L (21-32); Calcium, Blood 8.2 mg/dL (8.5-10.1); Chloride, Blood 106 mmol/L (98-108); Creatinine, Blood 0.48 mg/dL (0.40-1.00); Globulin, Blood 6.2 g/dL (2.2-4.0); Glomerular Filtration Rate >60 (60-); Glucose, Blood 104 mg/dL (70-99); Magnesium, Blood 1.7 mg/dL (1.6-2.4); Phosphorus, Blood 3.5 mg/dL (2.5-4.9); Potassium, Blood 3.8 mmol/L (3.5-5.5); Sodium, Blood 137 mmol/L (136-145); Total Protein, Blood 7.9 g/dL (6.4-8.2)
--- NOTE | 2019-06-12 07:55 | NUR ---
NO PLAN FOR SURGERY TODAY, PT NOW ADA DIET. WILL MONITOR
[2019-06-12] MEDS ORDERED: Humalog100 UNIT/3 SC (11:25)
[2019-06-12] MEDS ORDERED: TRAM50 PO (11:30)
--- NOTE | 2019-06-12 12:34 | NUR ---
PT TO DISCHARGE AT 3:30 TO [facility] MADE AWARE
--- NOTE | 2019-06-12 15:18 | NUR ---
DISCHARGE TO [facility]: TRANSPORT HERE FOR PT AT ABOUT 1500. PT LEFT UNIT IN WHEELCHAIR. TRANSPORTER GIVEN PACKET. REPORT CALLED TO [facility] ROSS RN AT 1510.
== END 2019-06-12 15:03 | DRG 463 ==
LOC: ER 05:48 → MEDS 13:16 → SURS 13:16
PROVIDERS: Emergency Medicine; Family Medicine; Orthopaedic Surgery; ADMIT Family Medicine
PROC: 0SBC0ZZ Excision of Right Knee Joint, Open Approach (ICD-10-PCS; 2019-06-08)
PROC: 0J9N00Z Drainage of Right Lower Leg Subcutaneous Tissue and Fascia with Drainage Device, Open Approach (ICD-10-PCS; 2019-06-08)
PROC: 3E1U48X Irrigation of Joints using Irrigating Substance, Percutaneous Endoscopic Approach, Diagnostic (ICD-10-PCS; 2019-06-08)
PROC: 0QS734Z Reposition Left Upper Femur with Internal Fixation Device, Percutaneous Approach (ICD-10-PCS; principal; 2019-06-08 12:15)
PROC: 0JBN0ZZ Excision of Right Lower Leg Subcutaneous Tissue and Fascia, Open Approach (ICD-10-PCS; 2019-06-08 12:15)
DX: S72.002A Fracture of unspecified part of neck of left femur, initial encounter for closed fracture (principal); E43 Unspecified severe protein-calorie malnutrition; L03.115 Cellulitis of right lower limb; L02.415 Cutaneous abscess of right lower limb; M00.9 Pyogenic arthritis, unspecified; A02.9 Salmonella infection, unspecified; W18.30XA Fall on same level, unspecified, initial encounter; B18.2 Chronic viral hepatitis C; E03.9 Hypothyroidism, unspecified; Z96.641 Presence of right artificial hip joint; Z79.4 Long term (current) use of insulin; Z90.09 Acquired absence of other part of head and neck; M23.91 Unspecified internal derangement of right knee; E78.5 Hyperlipidemia, unspecified; E11.65 Type 2 diabetes mellitus with hyperglycemia; J44.9 Chronic obstructive pulmonary disease, unspecified; F17.200 Nicotine dependence, unspecified, uncomplicated
CPT/HCPCS: 36415; 71046; 72170; 73502; 73700; 80048; 80053; 80202; 81001; 82140; 82947; 83605; 83735; 83880; 84100; 85025; 85027; 85610; 85651; 85730; 86140; 87040; 89051; 89060; 93005; 93010; 93306; 93971; 96374; 97110; 97112; 97116; 97162; 97166; 97530; 97535; 99285-25; A9270; A9270-GY; C1713; C1769; J0690; J0696; J1100; J1650; J1815; J1885; J2250; J2405; J2543; J2704; J3010; J3370; J7050; J7120

== ENCOUNTER 2019-07-20 22:12 | Inpatient (IN) | payer OTHER ==
[~2019-07-20] VITALS: Ht 170.2 cm; Wt 61.1 kg
[~2019-07-20 22:12] MED LIST changes: +Ceftriaxone1 G2 IV; +FAMO20 PO; +Humalog100 UNIT/3 SC; +METOPROLOL TART25 MG PO; +Rocephin 1g1 G/50 ML IV; +SPIRONOLACTONE25 MG PO; +TRAM50 PO; +VENL37.5 PO
[2019-07-20 22:38] LABS: BASOPHILS ABSOLUTE AUTO 0.05 K/mm3 (0.00-0.23); BASOPHILS PERCENT AUTO 0 % (0-2); EOSINOPHILS PERCENT AUTO 2 % (0-6); Hematocrit 29.7 % (33.0-51.0); Hemoglobin 9.2 g/dL (11.5-16.0); IMMATURE GRAN PERCENT AUTO 1 % (0-1); LYMPHOCYTES ABSOLUTE AUTO 1.01 K/mm3 (0.84-5.20); LYMPHOCYTES PERCENT AUTO 6 % (21-46); MONOCYTES ABSOLUTE AUTO 0.84 K/mm3 (0.16-1.47); MONOCYTES PERCENT AUTO 5 % (4-13); Mean Corpuscular HGB 25.8 pg (26.0-34.0); Mean Corpuscular Volume 83 fL (80-100); Mean Platelet Volume 10.5 fL (9.1-12.4); NEUTROPHILS ABSOLUTE AUTO 15.93 K/mm3 (1.96-9.15); NEUTROPHILS PERCENT AUTO 88 % (41-73); Platelet Count 337 K/mm3 (150-400); RDW Coefficient Variation 15.8 % (11.7-14.2); Red Blood Cell Count 3.56 M/mm3 (3.80-5.20); White Blood Cell Count 18.23 K/mm3 (4.00-11.30)
[2019-07-20] MEDS ORDERED: ASCO500 PO (22:38)
[2019-07-20] MEDS ORDERED: ASPI81CH PO (22:40)
[2019-07-20] MEDS ORDERED: ATOR20 PO (22:41)
[2019-07-20] MEDS ORDERED: CYCLOBENZAPRINE5 MG PO (22:42)
[2019-07-20] MEDS ORDERED: Hydrocodone-Ap1 EA23 PO (22:43)
[2019-07-20] MEDS ORDERED: PERCOCET 10-321 EACH PO (22:44)
[2019-07-20 22:54] LABS: Alanine Aminotransfer (ALT/SGP 18 U/L (12-78); Albumin, Blood 2.5 g/dL (3.4-5.0); Albumin/Globulin Ratio 0.4 (0.8-1.8); Alk Phos 360 U/L (50-136); Anion Gap 9 mmol/L (6-16); Aspartate Aminotrans (AST/SGOT 67 U/L (12-37); Bilirubin, Total 0.4 mg/dL (0.1-1.0); Blood Urea Nitrogen 22 mg/dL (8-24); Bun/Creatinine Ratio 43.8 (12.0-20.0); CO2, Blood 22 mmol/L (21-32); Calcium, Blood 8.6 mg/dL (8.5-10.1); Chloride, Blood 107 mmol/L (98-108); Globulin, Blood 6.6 g/dL (2.2-4.0); Glomerular Filtration Rate >60 (60-); Glucose, Blood 123 mg/dL (70-99); Potassium, Blood 4.8 mmol/L (3.5-5.5); Sodium, Blood 138 mmol/L (136-145); Total Protein, Blood 9.1 g/dL (6.4-8.2)
[2019-07-20 23:29] LABS: Source, Urine Catheter
[2019-07-20 23:42] LABS: Bilirubin, Urine Neg (Neg); Blood, Urine 1+ (Neg); Glucose Qualitative, Urine Neg (Neg); Ketones, Urine Neg (Neg); Leukocyte Esterase, Urine Neg (Neg); Nitrite, Urine Neg (Neg); Protein, Urine 3+ (Neg); Specific Gravity, Urine 1.015 (1.003-1.022); Urobilinogen, Urine NORM (Normal)
[2019-07-20 23:56] LABS: Appearance, Urine Clear (Clear); Bacteria Not Seen /hpf; Color, Urine Yellow (P-Yellow); Hyaline Casts 0-2 /lpf (0-2); Red Blood Cells, Urine 0-2 /hpf (0-2); Squamous Epithelial Cells Not Seen /hpf (Few); White Blood Cells, Urine Not Seen /hpf (0-5)
[2019-07-21 00:39] LABS: International Normalized Ratio 1.08; Prothrombin Time Results 11.5 Sec (9.7-11.5)
[2019-07-21 01:55] LABS: BASOPHILS ABSOLUTE AUTO 0.04 K/mm3 (0.00-0.23); BASOPHILS PERCENT AUTO 0 % (0-2); EOSINOPHILS ABSOLUTE AUTO 0.03 K/mm3 (0.00-0.68); EOSINOPHILS PERCENT AUTO 0 % (0-6); Hemoglobin 7.7 g/dL (11.5-16.0); IMMATURE GRAN ABSOLUTE AUTO 0.16 K/mm3 (0.00-0.10); IMMATURE GRAN PERCENT AUTO 1 % (0-1); LYMPHOCYTES ABSOLUTE AUTO 0.72 K/mm3 (0.84-5.20); LYMPHOCYTES PERCENT AUTO 4 % (21-46); MONOCYTES ABSOLUTE AUTO 1.25 K/mm3 (0.16-1.47); MONOCYTES PERCENT AUTO 6 % (4-13); Mean Corpuscular HGB 25.8 pg (26.0-34.0); Mean Corpuscular HGB Conc 29.6 g/dL (31.5-36.5); Mean Platelet Volume 10.7 fL (9.1-12.4); NEUTROPHILS ABSOLUTE AUTO 18.44 K/mm3 (1.96-9.15); NEUTROPHILS PERCENT AUTO 89 % (41-73); Platelet Count 280 K/mm3 (150-400); RDW Coefficient Variation 15.9 % (11.7-14.2); RDW Standard Deviation 50.4 fL (35.1-46.3); Red Blood Cell Count 2.98 M/mm3 (3.80-5.20); White Blood Cell Count 20.64 K/mm3 (4.00-11.30)
[2019-07-21 01:57] LABS: Mean Corpuscular Volume 87 fL (80-100)
[2019-07-21 02:11] LABS: Alanine Aminotransfer (ALT/SGP 17 U/L (12-78); Albumin/Globulin Ratio 0.4 (0.8-1.8); Alk Phos 302 U/L (50-136); Anion Gap 9 mmol/L (6-16); Aspartate Aminotrans (AST/SGOT 60 U/L (12-37); Bilirubin, Total 0.4 mg/dL (0.1-1.0); Blood Urea Nitrogen 21 mg/dL (8-24); Bun/Creatinine Ratio 40.2 (12.0-20.0); CO2, Blood 19 mmol/L (21-32); Calcium, Blood 7.6 mg/dL (8.5-10.1); Chloride, Blood 111 mmol/L (98-108); Creatinine, Blood 0.52 mg/dL (0.40-1.00); Globulin, Blood 5.6 g/dL (2.2-4.0); Glomerular Filtration Rate >60 (60-); Glucose, Blood 145 mg/dL (70-99); Potassium, Blood 4.2 mmol/L (3.5-5.5); Sodium, Blood 139 mmol/L (136-145); Total Protein, Blood 7.6 g/dL (6.4-8.2)
--- NOTE | 2019-07-21 06:05 | NUR ---
SHIFT SUMMARY PATIENT WAS ADMITTED TO ICU AROUND 01:00. AFTER COMPLETING ADMISSION, AROUND 02:45, PATIENT BECAME HYPOTENSIVE, RECEIVED ORDER TO GIVE ADDITIONAL 500 ML NS BOLUS. BP IMPROVED BACK TO NORMAL. PER NEVAEH, REINFORCING IRON AND REBAR WORKERS GAVE X1 CUP OF LACTULOSE SHORTLY AFTER ADMISSION FOR ELEVATED AMMONIA LEVEL. NO G.I. RESULTS YET, HAS IMPROVED MENTATION HOWEVER. PATIENT RESTING QUIETLY IN BED. NO C/O PAIN. VSS. ASSESSMENT IS CHARTED. WILL CONTINUE TO MONITOR.
--- NOTE | 2019-07-21 07:40 | NUR ---
ASSUMED CARE: REPORT RECEIVED FROM MOO Nelson RN. ASSUMED CARE OF THIS PT AT APPROX 0700. ON ASSESSMENT, THE PT IS RESTING QUIETLY. SHE AWAKENS EASILY TO VERBAL STIMULUS & IS ANXIOUS WHEN WAKING BUT REDIRECTABLE. LS ARE DIM IN BASES & PT ON RA W/ O2 SATS > 92%. MONITOR SHOWS ST W/ HR 110-120s, BP STABLE. NO GI COMPLAINTS OTHER THAN HUNGER, HAVING REGULAR BMs & VOIDING W/O DIFFICULTY. SKIN OVERALL FRAGILE BUT INTACT, WOUND VAC TO RLE PATENT. WILL CONTINUE TO MONITOR & UPDATE NEEDED.
--- NOTE | 2019-07-21 11:34 | NUR ---
DR MOSES: PROVIDER AT BEDSIDE TO EVAL PT. STS OKAY TO HAVE SIPS & CHIPS FOR COMFORT BUT SHOULD NOT HAVE A DIET ORDERED AT THIS TIME. CT SCAN OF RLE ORDERED & COMPLETED. WILL CONTINUE TO MONITOR & UPDATE NEEDED.
--- NOTE | 2019-07-21 14:45 | NUR ---
"DAY SURGERY RN | READIED PATIENT IN ICU Patient readied for surgery to extent able. Checklist placed on greeneet with remaining tasks to be completed. Reported this to abril Polo RN."
--- NOTE | 2019-07-21 15:32 | NUR ---
DAY SURGERY: DR ESPINAL HAS SEEN PT THIS AM & NOW OR TEAM IS AT BEDSIDE TO PREP PT. SHE HAS BEEN TAKEN OUT OF ROOM VIA BED AT 0530 W/ BLOOD PRODUCTS INFUSING PER ORDERS. WILL AWAIT RETURN.
--- NOTE | 2019-07-21 15:59 | NUR ---
"DAY SURGERY RN | TO OR BOTH DOCTORS HAVE SEEN. REPORT TO JALIL ORTA DIGITIZER RN. TO OR."
--- NOTE | 2019-07-21 18:43 | NUR ---
RETURN TO ICU / SHIFT SUMMARY: REPORT RECEIVED FROM ALEXX Ayala, OBJECTIVE C DEVELOPER. PT ARRIVED BACK TO ICU-10 AT APPROX 1800. ON ARRIVAL, VSS. PT IS RESTING QUIETLY & AWAKENS EASILY TO VERBAL STIMULUS. SHE IS SOMEWHAT DISORIENTED ON WAKING & TAKES A FEW MOMENTS TO REORIENT HERSELF, BUT REMAINS PLEASANT. WOUND VAC TO RLE IS WELL DRESSED & PATENT. PT ON 2L NC W/ O2 SATS > 92%. PLACED IN PACU FOR DESATS WHILE SLEEPING. MONITOR SHOWS ST W/ HR 110s, BP STABLE. NO GI/ COMPLAINTS. WILL CONTINUE TO MONITOR & REPORT OFF TO ONCOMING RN.
[2019-07-22 03:16] LABS: Albumin, Blood 1.8 g/dL (3.4-5.0); Albumin/Globulin Ratio 0.3 (0.8-1.8); Alk Phos 217 U/L (50-136); Anion Gap 6 mmol/L (6-16); Aspartate Aminotrans (AST/SGOT 44 U/L (12-37); Bilirubin, Total 0.5 mg/dL (0.1-1.0); Blood Urea Nitrogen 20 mg/dL (8-24); Bun/Creatinine Ratio 44.4 (12.0-20.0); CO2, Blood 20 mmol/L (21-32); Calcium, Blood 7.6 mg/dL (8.5-10.1); Chloride, Blood 113 mmol/L (98-108); Creatinine, Blood 0.45 mg/dL (0.40-1.00); Globulin, Blood 5.3 g/dL (2.2-4.0); Glomerular Filtration Rate >60 (60-); Glucose, Blood 160 mg/dL (70-99); Potassium, Blood 3.5 mmol/L (3.5-5.5); Sodium, Blood 139 mmol/L (136-145); Total Protein, Blood 7.1 g/dL (6.4-8.2)
[2019-07-22 04:40] LABS: Alanine Aminotransfer (ALT/SGP 17 U/L (12-78)
--- NOTE | 2019-07-22 04:42 | NUR ---
SHIFT SUMMARY PATIENT SLEPT WELL THROUGH NIGHT. STATING SHE IS HUNGRY, WILL ADVISE DAYSHIFT TO ADVANCE DIET. GAVE A FEW JELLOS AND WATER TO SATISFY FOR NOW. ONE INCIDENCE OF PAIN IN RIGHT LEG, GAVE X1 NORCO, PAIN RELIEVED. ASSESSMENT IS CHARTED. VSS. WILL CONTINUE TO MONITOR.
--- NOTE | 2019-07-22 07:50 | NUR ---
ASSSUMED CARE OF PT. C/O 12/21 PAIN IN RLE, LAST PO PAIN MED AT 0610. AROUSES TO SPEECH, ORIENTED ONCE AWAKE. BREATHING EVEN AND UNLABORED, O2 SAT 97% ON RA. R KNEE WRAPPED IN KATHY WRAP. WOUND VAC ON R ANTERIOR CALF, DRESSING INTACT. STATED SHE IS HUNGRY, WANTS TO EAT REAL FOOD. PLAN IS LIKLEY STATUS CHANGE TODAY.
--- NOTE | 2019-07-22 08:14 | NUR ---
ASSUMED CARE OF PATIENT AT 0730. C/O 11/20 ABD PAIN, NO NAUSEA. WOUND VAC DRESSING INTACT, ABD BINDER IN PLACE. O2 @ 4 L/MIN NC, SAT 96-98%, WILL TITRATE DOWN. [place] DRAINING CLEAR, YELLOW URINE.
[2019-07-22 09:41] LABS: BASOPHILS ABSOLUTE AUTO 0.04 K/mm3 (0.00-0.23); BASOPHILS PERCENT AUTO 0 % (0-2); EOSINOPHILS ABSOLUTE AUTO 0.02 K/mm3 (0.00-0.68); EOSINOPHILS PERCENT AUTO 0 % (0-6); Hematocrit 24.1 % (33.0-51.0); Hemoglobin 7.6 g/dL (11.5-16.0); IMMATURE GRAN ABSOLUTE AUTO 0.08 K/mm3 (0.00-0.10); IMMATURE GRAN PERCENT AUTO 1 % (0-1); LYMPHOCYTES PERCENT AUTO 10 % (21-46); MONOCYTES ABSOLUTE AUTO 0.64 K/mm3 (0.16-1.47); MONOCYTES PERCENT AUTO 5 % (4-13); Mean Corpuscular HGB 26.4 pg (26.0-34.0); Mean Corpuscular HGB Conc 31.5 g/dL (31.5-36.5); Mean Platelet Volume 10.5 fL (9.1-12.4); NEUTROPHILS ABSOLUTE AUTO 10.42 K/mm3 (1.96-9.15); NEUTROPHILS PERCENT AUTO 84 % (41-73); Platelet Count 244 K/mm3 (150-400); RDW Coefficient Variation 15.7 % (11.7-14.2); RDW Standard Deviation 47.5 fL (35.1-46.3); Red Blood Cell Count 2.88 M/mm3 (3.80-5.20)
[2019-07-22 09:42] LABS: Mean Corpuscular Volume 84 fL (80-100)
--- NOTE | 2019-07-22 11:05 | NUR ---
DR. MOSES AT BEDSIDE AT 1034. OK FOR PT TO EAT. WILL TRANSFER TO SURGICAL FLOOR.
--- NOTE | 2019-07-22 11:21 | NUR ---
KRISTEN QUEZADA, SAS ARCHITECT, TOOK PATIENT'S ORIGINAL WOUND VAC (FROM [facility]). PT CURRENTLY HAS HOSPITAL WOUND VAC.
--- NOTE | 2019-07-22 15:46 | NUR ---
Patient is alert and oriented and agreed to care on 07/22/19.
--- NOTE | 2019-07-22 15:48 | NUR ---
PT TRANSFERED TO ROOM 230 VIA W/C. WOUND VAC ACCOMPANIED PT. NO BELONGINGS.
--- NOTE | 2019-07-22 15:52 | NUR ---
TRANSFER ARRIVAL TO UNIT FROM ICU VIA W/C. PT ABLE TO STAND AND PIVOT SELF TO BED. R LEG NWB. WOUND VAC IN PLACE AND KATHY WRAP CDI. PT REQUESTS PAIN MEDICATION. ORIENTED TO ROOM AND CALL LIGHT. PT ALERT, ORIENTED, AND PLEASANT.
--- NOTE | 2019-07-22 16:20 | NUR ---
PT OUT IN HALLWAYS INDEP WITH W/Tihen.
--- NOTE | 2019-07-22 19:12 | NUR ---
Initial spiritual care note: Julissa is much more lucid today and able to carry conversation. She reports that she is "tired of being sick" and wants to go home. She has been hospitalized or in rehab for the past four months. She was often tearful as we spoke. I provided theraputic listening and emtional affirmation. Prayer provided for healing at pt request. We had an easy rapport and Julissa was smiling by conclusion of visit. I will remain available.
--- NOTE | 2019-07-23 04:49 | NUR ---
SHIFT SUMMARY: CHEN RESTED VERY LITTLE DURING THE NIGHT. SHE COMPLAINED OF PAIN WHICH SHE RATED AT 6-8/10. SHE STATED THAT THE [facility] PROVIDED GOOD RELIEF, BUT SHE DID CALL FOR IT AGAIN AFTER ABOUT AN HOUR. WOUND VAC TO RIGHT LOWER LEG PATENT. SHE IS A ONE PERSON ASSIST TO THE BEDSIDE COMMODE. SHE WAS EDUCATED ON THE DIFFERENCE BETWEEN "NON-WEIGHT BEARING" AND "TOE-TOUCH" WEIGHT BEARING. SHE STATES THAT SHE IS UNABLE TO TRANSFER HERSELF UNLESS SHE TOUCHES HER TOES TO THE FLOOR. THIS WAS STRONGLY DISCOURAGED. SHE HAS NO DIFFICULTY URINATING. SHE DID COMPLAIN OF MULTIPLE BOWEL MOVEMENTS YESTERDAY AND THEREFORE REFUSED THE STOOL SOFTENER AND LACTULOSE. SHE IS ABLE TO MAKE HER NEEDS KNOWN. SHE IS ALERT AND ORIENTED X 2. SHE IS LYING IN BED WITH HER CALL LIGHT IN REACH. WILL REPORT TO DAY SHIFT RN.
[2019-07-23 05:47] LABS: BASOPHILS ABSOLUTE AUTO 0.06 K/mm3 (0.00-0.23); BASOPHILS PERCENT AUTO 1 % (0-2); EOSINOPHILS ABSOLUTE AUTO 0.27 K/mm3 (0.00-0.68); EOSINOPHILS PERCENT AUTO 3 % (0-6); Hematocrit 28.6 % (33.0-51.0); Hemoglobin 8.4 g/dL (11.5-16.0); IMMATURE GRAN ABSOLUTE AUTO 0.08 K/mm3 (0.00-0.10); IMMATURE GRAN PERCENT AUTO 1 % (0-1); LYMPHOCYTES ABSOLUTE AUTO 1.27 K/mm3 (0.84-5.20); LYMPHOCYTES PERCENT AUTO 12 % (21-46); MONOCYTES ABSOLUTE AUTO 0.83 K/mm3 (0.16-1.47); MONOCYTES PERCENT AUTO 8 % (4-13); Mean Corpuscular HGB 25.4 pg (26.0-34.0); Mean Corpuscular HGB Conc 29.4 g/dL (31.5-36.5); Mean Corpuscular Volume 86 fL (80-100); NEUTROPHILS ABSOLUTE AUTO 7.76 K/mm3 (1.96-9.15); NEUTROPHILS PERCENT AUTO 76 % (41-73); Platelet Count 246 K/mm3 (150-400); RDW Standard Deviation 53.9 fL (35.1-46.3); Red Blood Cell Count 3.31 M/mm3 (3.80-5.20); White Blood Cell Count 10.27 K/mm3 (4.00-11.30)
[2019-07-23 06:05] LABS: Alanine Aminotransfer (ALT/SGP 16 U/L (12-78); Albumin, Blood 1.8 g/dL (3.4-5.0); Albumin/Globulin Ratio 0.3 (0.8-1.8); Alk Phos 220 U/L (50-136); Anion Gap 5 mmol/L (6-16); Aspartate Aminotrans (AST/SGOT 43 U/L (12-37); Bilirubin, Total 0.4 mg/dL (0.1-1.0); Blood Urea Nitrogen 17 mg/dL (8-24); Bun/Creatinine Ratio 63.7 (12.0-20.0); CO2, Blood 18 mmol/L (21-32); Calcium, Blood 7.7 mg/dL (8.5-10.1); Chloride, Blood 110 mmol/L (98-108); Creatinine, Blood 0.27 mg/dL (0.40-1.00); Globulin, Blood 5.6 g/dL (2.2-4.0); Glomerular Filtration Rate >60 (60-); Glucose, Blood 245 mg/dL (70-99); Potassium, Blood 4.1 mmol/L (3.5-5.5); Sodium, Blood 133 mmol/L (136-145); Total Protein, Blood 7.4 g/dL (6.4-8.2)
--- NOTE | 2019-07-23 06:50 | NUR ---
CHEN CALLED THIS NURSE TO HER ROOM WITH COMPLAINTS OF DIFFICULTY BREATHING. UPON ASSESSMENT, HER RESPIRATORY RATE WAS INCREASED AND LUNG SOUNDS DEMONSTRATED WHEEZING IN THE LEFT UPPER LOBE. AFTER PRACTICING SOME DEEP BREATHING, CHEN DENIED ANY OTHER SYMPTOMS AND STATED THAT SHE WAS FEELING ANXIOUS ABOUT GOING HOME. SHE STATES THAT SHE LIVES WITH HER MOTHER AND THAT SHE HASN'T BEEN HOME FOR THREE MONTHS. SHE BECAME TEARFUL AND STATED THAT THESE FEELINGS HAVE KEPT HER FROM SLEEPING MUCH DURING THE NIGHT. SHE WAS ENCOURAGED TO FOCUS ON RELAXATION AND DEEP BREATHING TO PROMOTE REST AND HEALING. SHE STATED THAT HER SYMPTOMS HAVE IMPROVED. SHE WAS REQUESTED TO NOTIFY NURSING STAFF IMMEDIATELY IF SYMPTOMS RETURN. SHE DENIES HAVING ANXIETY IN THE PAST OR TAKING MEDICATION FOR ANXIETY.
--- NOTE | 2019-07-23 09:41 | NUR ---
PATIENT CLEANED FACE WITH WARM WASHCLOTH
--- NOTE | 2019-07-23 11:55 | NUR ---
PT OUT OF ROOM
--- NOTE | 2019-07-23 12:49 | NUR ---
pt back to room BOTH IVS LEAKING. NO IV ACCESS AT THIS TIME. WILL START IV ABX ONCE IV ACCESS ESTABLISHED.
--- NOTE | 2019-07-23 16:29 | NUR ---
PT DISTRESSED ENTERED ROOM TO FIND PT CRYING. STATED MOTHER IN LAW AND NEEDS TO LEAVE. WANTED RN TO CALL DR ESPINAL AND LET HIM KNOW, WHICH WAS DONE. NOTIFIED DR MOSES OF PT'S DESIRE TO BE DISCHARGED. DR ESPINAL TO COME SEE PT SHORTLY.
--- NOTE | 2019-07-23 16:59 | NUR ---
DR ESPINAL IN TO SEE PT. REMOVED WOUND VAC AND PACKED WOUND.
--- NOTE | 2019-07-23 17:27 | NUR ---
DR MOSES IN TO SEE PT/FAMILY CALLED FAMILY CALLED AND STATED PT HAS NOWHERE TO GO, FAMILY CANNOT HAVE PT STAY WITH THEM. TRANSFERRED FAMILY MEMBER IN TO PT'S ROOM IN ORDER FOR THEM TO DISCUSS. PT CAME OUT OF ROOM AND STATED NEEDED TRANSPORT TO [facility]. ADVISED PT WE COULD NOT ARRANGE FOR PT TO BE TRANSFERRED TO [facility] AT THIS TIME OF DAY. PT AGREED TO STAY NIGHT, LET DR MOSES AND DR ESPINAL KNOW PT WILL BE STAYING THROUGH THE NIGHT.
--- NOTE | 2019-07-23 17:47 | NUR ---
SUMMARY PT TACHY AND CBG ELEVATED T/O SHIFT. DISCUSSED W/DR MOSES TODAY AND ORDERS OBTAINED. PT STATES UNABLE TO ADHERE TO NONWB STATUS OF RLE. USES WC TO GO OUTSIDE AND IN HALLS. FOUND PT CRYING THIS AFTERNOON. PT REPORTED MOTHER IN LAW HAD AND SHE NEEDED TO BE DC'D. CONTACTED DR ESPINAL AND DR MOSES. DR ESPINAL REMOVED WOUND VAC AND PACKED WOUND, DISCUSSED FOLLOW UP ARRANGEMENTS W/PT. DR MOSES WAS IN ROOM DISCUSSING PLANS W/PT, FAMILY CALLED AND STATED THEY COULD NOT TAKE PT HOME, THERE WAS NOWHERE FOR HER TO GO; PT HAS BEEN AT [facility] PRIOR TO HOSPITAL ADMIT. AFTER SPEAKING W/FAMILY, PT CAME OUT IN HALLWAY IN AND STATED SHE NEEDED TO BE TRANSPORTED TO [facility]. ADVISED PT IT WAS A PROCESS THAT NEEDS TO BE STARTED BUT CANNOT BE COMPLETED TONIGHT. DR MOSES AND DR ESPINAL NOTIFIED THAT PT WILL BE STAYING THROUGH NIGHT. PT'S CBG 295 AT DINNER, COVERED W/ 4 UNITS HUMALOG PER ORDERS. SITTING IN BED EATING DINNER AT THIS TIME. CALL LIGHT IN REACH.
--- NOTE | 2019-07-23 18:27 | NUR ---
pt out of room in
--- NOTE | 2019-07-24 05:23 | NUR ---
POD 3 S/P I&D OF RLE. PT VSS T/O NIGHT, PT REP MILD DYPSNEA W/EXERTION, SATS >95% ON RA, LUNGS DIM/CLEAR. DRESSING TO RLE INTACT W/NO VISIBLE DRNG; NO CHANGES IN REDNESS/SWELLING; ELEVATION WHILE IN BED REINFORCED. PT UP OOB W/FWW, NEEDING REMINDING FOR NWB STATUS. PT USING CALL LIGHT FOR ASSISTANCE, WILL CONT TO MONITOR UNTIL REP GIVEN TO ONCOMING RN.
--- NOTE | 2019-07-24 10:24 | NUR ---
PT OUT OF ROOM IN .
--- NOTE | 2019-07-24 15:20 | NUR ---
PT REPORTED DR ESPINAL IN TO CHANGE DRESSING. MEDICATED PER ORDERS FOR PAIN. OT IN TO SEE PT.
--- NOTE | 2019-07-24 16:00 | NUR ---
PT BACK TO ROOM FROM OUTSIDE.
--- NOTE | 2019-07-24 17:06 | NUR ---
SUMMARY NO ACUTE CHANGES T/O SHIFT. PT SITTING IN WC AT THIS TIME. WORKED W/THERAPY. DR ESPINAL IN TO CHANGE DRESSING. DR KEYES IN TO SEE PT, NEW ORDERS FOR ABX OBTAINED. PT ANXIOUS TO BE DC'D TO [facility]. GETS TEARFUL PERIODICALLY ABOUT BEING IN HOSPITAL AND MOTHER IN LAW YESTERDAY. PT REPORTS SPOUSE IN [place]. MEDICATED TWICE DURING SHIFT FOR RLE PAIN.
--- NOTE | 2019-07-24 18:42 | NUR ---
pt out of room in
--- NOTE | 2019-07-25 04:31 | NUR ---
SHIFT SUMMARY: NO SIGNIFICANT CHANGES THIS SHIFT. RLE SWOLLEN, RED AND WARM TO THE TOUCH. WRAPPED IN KERLEX, ABD PAD AND KATHY WRAP. PT ABLE TO WIGGLE TOES. PT REPORTS NEUROPATHY TO TOES AT BASELINE. PT ABLE TO TRANSFER IN OUT OF WHEELCHAIR INDEPENDENTLY. PAIN MANAGED WITH ORAL PAIN MEDICATION PER EMAR. PLAN FOR IV ABX AND POSSIBLE DISCHARGE TO SNF TODAY.
--- NOTE | 2019-07-25 11:20 | NUR ---
REPORT PHONED TO CHEN AT [facility]. DISCUSSED DRESSING CHANGR TO LEG AND CHEN AWARE THAT DRESSING HAS NOT BEEN CHANGED YET TODAY. DISCUSSED WITH CHEN THAT POWERGLIDE FLUSHES EASILY BUT HAS BEEN POSITIONAL. PT AWARE OF TRANSFER PLAN AND TELLS ME SHE IS EXCITED TO RETURN TO [facility]
--- NOTE | 2019-07-25 12:42 | NUR ---
1230 discharg discharged with transport wheelchair to [facility]
== END 2019-07-25 12:37 | DRG 853 ==
LOC: ER 22:12 → ICUW 07-21 00:04 → SURS 07-21 00:04 → ICUW 07-21 01:01 → SURS 07-22 16:05
PROVIDERS: Emergency Medicine; Internal Medicine; Nurse Practitioner Acute Care; Orthopaedic Surgery; ADMIT Internal Medicine
PROC: 0YBF0ZZ Excision of Right Knee Region, Open Approach (ICD-10-PCS; principal; 2019-07-21 15:45)
DX: A40.0 Sepsis due to streptococcus, group A (principal); G93.41 Metabolic encephalopathy; M00.9 Pyogenic arthritis, unspecified; A02.9 Salmonella infection, unspecified; M86.8X6 Other osteomyelitis, lower leg; R65.20 Severe sepsis without septic shock; Z79.4 Long term (current) use of insulin; B18.2 Chronic viral hepatitis C; E11.9 Type 2 diabetes mellitus without complications; D63.8 Anemia in other chronic diseases classified elsewhere; E78.5 Hyperlipidemia, unspecified; K74.60 Unspecified cirrhosis of liver; G47.00 Insomnia, unspecified; F41.9 Anxiety disorder, unspecified; I10 Essential (primary) hypertension; K21.9 Gastro-esophageal reflux disease without esophagitis; F32.9 Major depressive disorder, single episode, unspecified; I25.2 Old myocardial infarction; E03.9 Hypothyroidism, unspecified
CPT/HCPCS: 36415; 36430; 71045; 73701; 80053; 80202; 81001; 82140; 82947; 83605; 83690; 83880; 85025; 85379; 85610; 85651; 85730; 86140; 86850; 86900; 86901; 86923; 87040; 87070; 87075; 87147; 87205; 93005; 93010; 96365; 97162; 97166; 97530; 99285-25; A9270; A9270-GY; J0330; J0692; J0696; J1650; J2370; J2405; J2543; J2704; J3010; J3370; J7030; J7050; J7120; P9016; P9612; Q9967

== ENCOUNTER → 2019-08-01 | Outpatient (CLI) | payer OTHER ==
[~2019-08-01] MED LIST changes: +ASCO500 PO; +ASPI81CH PO; +ATOR20 PO; +CYCLOBENZAPRINE5 MG PO; +Hydrocodone-Ap1 EA23 PO; +PERCOCET 10-321 EACH PO
[2019-08-01 04:33] LABS: Source, Urine Clean Catch
[2019-08-01 04:36] LABS: Bilirubin, Urine Neg (Neg); Blood, Urine Neg (Neg); Glucose Qualitative, Urine 3+ (Neg); Ketones, Urine 1+ (Neg); Leukocyte Esterase, Urine 1+ (Neg); Nitrite, Urine Neg (Neg); Protein, Urine 2+ (Neg); Urobilinogen, Urine NORM (Normal)
[2019-08-01 04:43] LABS: Appearance, Urine Clear (Clear); Color, Urine Yellow (P-Yellow)
[2019-08-01 04:44] LABS: Bacteria Few /hpf; Red Blood Cells, Urine Not Seen /hpf (0-2); Squamous Epithelial Cells Few /hpf (Few)
[2019-08-01 04:50] LABS: U Amphetamine Screen Not Detected; U Barbituate Screen Not Detected; U Benzodiazapine Screen Not Detected; U Buprenorphine Screen Not Detected; U Cannabinoids Screen Not Detected; U Cocaine Screen Not Detected; U Methadone Screen Not Detected; U Methamphetamine Screen Not Detected; U Opiates Screen Not Detected; U Oxycodone Screen Not Detected; U Phencyclidine Screen Not Detected; U Propoxyphene Screen Not Detected
[2019-08-01 21:33] LABS: Bilirubin, Urine Neg (Neg); Blood, Urine Neg (Neg); Glucose Qualitative, Urine 2+ (Neg); Ketones, Urine Neg (Neg); Leukocyte Esterase, Urine Neg (Neg); Nitrite, Urine Neg (Neg); Protein, Urine 3+ (Neg); Specific Gravity, Urine 1.025 (1.003-1.022); Urobilinogen, Urine NORM (Normal)
[2019-08-01 21:44] LABS: U Amphetamine Screen Not Detected; U Barbituate Screen Not Detected; U Benzodiazapine Screen Not Detected; U Buprenorphine Screen Not Detected; U Cannabinoids Screen Not Detected; U Cocaine Screen Not Detected; U Methadone Screen Not Detected; U Methamphetamine Screen Not Detected; U Opiates Screen DETECTED; U Phencyclidine Screen Not Detected
[2019-08-01 21:45] LABS: U Oxycodone Screen Not Detected; U Propoxyphene Screen Not Detected
[2019-08-01 21:46] LABS: Appearance, Urine Clear (Clear); Bacteria Few /hpf; Color, Urine Yellow (P-Yellow); Red Blood Cells, Urine Not Seen /hpf (0-2); Squamous Epithelial Cells Not Seen /hpf (Few); White Blood Cells, Urine 0-2 /hpf (0-5)
[2019-08-01 21:47] LABS: Amorphous Light (0-Heavy)
== END | disposition home or self-care (01) ==
LOC: LAB RH 04:26 → EDSTATUS 13:27
PROVIDERS: Nurse Practitioner Family
DX: Z51.81 Encounter for therapeutic drug level monitoring (principal); A41.9 Sepsis, unspecified organism; K70.31 Alcoholic cirrhosis of liver with ascites; M00.861 Arthritis due to other bacteria, right knee; E11.69 Type 2 diabetes mellitus with other specified complication; M62.81 Muscle weakness (generalized); F33.9 Major depressive disorder, recurrent, unspecified; I10 Essential (primary) hypertension; R82.5 Elevated urine levels of drugs, medicaments and biological substances; N39.0 Urinary tract infection, site not specified; Z79.899 Other long term (current) drug therapy
CPT/HCPCS: 81001; 87077; 87086; 87186